=== PATIENT | female | born 1935 | race Two or more races ===

== ENCOUNTER 2016-10-17 05:15 | Inpatient (IN) | payer MEDICARE, MEDICAID ==
[2016-10-17] VITALS (8 sets, daily range): BP systolic 87–147; BP diastolic 44–89
[~2016-10-17] VITALS: Ht 172.7 cm; Wt 72.8 kg
[~2016-10-17 05:15] MED LIST: CLOP75TA41 PO; DIGO0.1262 PO; ERGO1CAP6 PO; FAMO-12 PO; FLUT110A INH; FURO20TA PO; GABA300C8 PO; GLIP-115 PO; LEVO100T8 PO; LORA-154 PO; METO25TA3 PO; MONT10TA23 OR; OMEP20TA44 PO; [UNRECOGNIZED DRUG - OTHER] PO
[2016-10-17 06:25] LABS: Urine RBC None Seen /hpf (0 - 4)
[2016-10-17 06:54] LABS: Basophils # (auto) 0 uL; Basophils % (auto) 0.1 % (0.0-2.0); DEFINITIVE VIEW TRANSMISSION; Eosinophils # (auto) 0.2 uL; Eosinophils % (auto) 1.6 % (0.0-7.0); Hematocrit 44.7 % (36.0-46.0); Hemoglobin 13.7 g/dL (12.2-16.2); Lymphocytes # (auto) 2.6 uL; Lymphocytes % (auto) 27.1 % (10.0-50.0); Mean Corpuscular Hemoglobin 28.9 pg (28.0-32.0); Mean Corpuscular Hgb Conc. 30.6 g/dL (32.0-36.0); Mean Corpuscular Volume 94.4 fL (80.0-100.0); Mean Platelet Volume 8.5 fL (7.4-10.4); Monocytes # (auto) 0.1 uL; Monocytes % (auto) 1.2 % (0.0-12.0); Neutrophils # (auto) 6.8 uL; Platelet Count (auto) 206 10^3/uL (140-450); Red Cell Distribution Width 15.9 % (11.6-16.0); White Blood Cell 9.8 10^3/uL (4.4-10.8)
[2016-10-17 07:12] LABS: Urine Bilirubin Negative (Negative); Urine Blood TRACE /uL (Negative); Urine Color Yellow (Yellow); Urine Glucose Normal (Normal); Urine Ketone Negative (Negative); Urine Nitrite Negative (Negative); Urine Squamous Epithelial Cell FEW /hpf (<5); Urine Urobilinogen Normal (Negative)
[2016-10-17] MEDS ORDERED: PANTOPRAZOLE SODIUM 40 MG/10 ML VIAL IV STA (07:16)
[2016-10-17] MEDS ORDERED: PANT40TA2 PO (07:24)
[2016-10-17] MEDS ORDERED: CARV3.1240 PO (07:25)
[2016-10-17] MEDS ORDERED: PRE5T GT (07:26)
[2016-10-17] MEDS ORDERED: ONDANSETRON HCL 4 MG/2 ML VIAL IV ONE (07:30)
[2016-10-17] MEDS ORDERED: HYDROmorphone HCL 2 MG/ML VL IV ONE (07:30)
[2016-10-17 07:45] LABS: BUN/Creatinine Ratio 17.6; Potassium 3.9 mmol/L (3.5-5.1)
[2016-10-17 07:46] LABS: Albumin 3.3 g/dL (3.4-5.0); Bilirubin, Total 0.5 mg/dL (0.2-1.0); Calcium 7.8 mg/dL (8.5-10.1); Total Protein 8.1 g/dL (6.4-8.2)
[2016-10-17] MEDS ORDERED: ETOMIDATE (2MG/ML) 20ML VIAL IV ONE ×2 (08:30→14:00)
[2016-10-17] MEDS ORDERED: SUCCINYLCHOLINE CHLORIDE 20 MG/ML 10ML VIAL IV ONE ×2 (08:30→13:30)
[2016-10-17] MEDS ORDERED: NOREPINEPHRINE BITARTRATE 250 ML IV ONE (08:44)
[2016-10-17] MEDS: MIDAZOLAM DRIP 100 mg/100mL NS 100 ML IV SCH (08:44)
[2016-10-17] MEDS: NOREPINEPHRINE BITARTRATE 250 ML IV SCH (08:44)
[2016-10-17] MEDS ORDERED: cefTRIAXone 1GM/50ML D5W 50 ML IV ONE (08:45)
[2016-10-17] MEDS ORDERED: MIDAZOLAM DRIP 100 mg/100mL NS 100 ML IV ONE (08:50)
[2016-10-17] MEDS ORDERED: NOREPINEPHRINE BITARTRATE 250 ML IV SCH (09:00)
[2016-10-17 09:16] LABS: Urine Bilirubin Negative (Negative); Urine Blood TRACE /uL (Negative); Urine Color Yellow (Yellow); Urine Glucose Normal (Normal); Urine Ketone Negative (Negative); Urine Nitrite Negative (Negative); Urine RBC 1 /hpf (0 - 4); Urine Squamous Epithelial Cell FEW /hpf (<5); Urine Urobilinogen Normal (Negative)
[2016-10-17] MEDS ORDERED: MIDAZOLAM DRIP 100 mg/100mL NS 100 ML IV SCH (11:00)
[2016-10-17] MEDS ORDERED: LIDOCAINE 4MG/ML IV SOLN 500 ML IV SCH (11:00)
[2016-10-17] MEDS ORDERED: VANCOMYCIN PER PHARMACY 0 MG IV SCH (11:30)
[2016-10-17] MEDS ORDERED: DEXTROSE (50%) 50ML SYRG IV PRN (11:30)
[2016-10-17] MEDS ORDERED: FAMOTIDINE (10MG/ML) 2ML VL IV ONE (11:30)
[2016-10-17] MEDS: PROPOFOL 100 ML IV SCH (11:32)
[2016-10-17] MEDS ORDERED: MORPHINE SULF INJ 2 MG/ML SYRINGE 1ML IV PRN ×2 (11:45)
[2016-10-17] MEDS ORDERED: ONDANSETRON HCL 4 MG/2 ML VIAL IV PRN (11:45)
[2016-10-17] MEDS ORDERED: NITROGLYCERIN 0.4 MG SL TAB SL PRN (11:45)
[2016-10-17] MEDS: cefTRIAXone 1GM/50ML D5W 50 ML IV SCH (12:04)
[2016-10-17] MEDS: SODIUM CHLORIDE 0.9% 1,000 ML IV SCH ×2 (12:04→19:58)
[2016-10-17 12:09] LABS: BUN/Creatinine Ratio 15.2; Calcium 7.7 mg/dL (8.5-10.1); Potassium 4.6 mmol/L (3.5-5.1)
[2016-10-17] MEDS: ACCU-CHEK COMFORT CURVE STRIP VI SCH ×2 (12:16→18:11)
[2016-10-17] MEDS: ENOXAPARIN SOD 30 MG/0.3 ML SYRINGE SC SCH (12:16)
[2016-10-17] MEDS: InsuLIN REG 1unit/0.01ml Soln (100units/ml) SC SCH ×2 (12:17→18:00)
[2016-10-17] MEDS: IPRATROPIUM BROM 0.5 MG/2.5ML INH SOL NEB SCH ×2 (12:24→18:10)
[2016-10-17] MEDS: ALBUTEROL SULF 2.5 MG/0.5ML(0.5%) NEB SOLN NEB SCH ×2 (12:24→18:10)
[2016-10-17] MEDS: VANCOMYCIN 1GM/250ML D5W 250 ML IV SCH (13:00)
[2016-10-17] MEDS ORDERED: FUROSEMIDE 100 MG/10ML VIAL IV ONE (13:45)
[2016-10-17] MEDS ORDERED: FUROSEMIDE 40 MG/4 ML VIAL ONE (13:46)
[2016-10-17 17:01] LABS: Lactic Acid 2.2 mmol/L (0.4-2.0)
[2016-10-17 17:29] LABS: REFLEX LACTIC ACID YES OR NO YES
[2016-10-17 19:05] LABS: Lactic Acid 2.6 mmol/L (0.4-2.0)
[2016-10-17 19:36] LABS: REFLEX LACTIC ACID YES OR NO YES
[2016-10-17] MEDS: HYDROmorphone HCL 2 MG/ML VL IV PRN ×2 (20:05→22:20)
[2016-10-17 20:44] LABS: Lactic Acid 2.2 mmol/L (0.4-2.0)
[2016-10-17 21:12] LABS: REFLEX LACTIC ACID YES OR NO YES
[2016-10-17] MEDS ORDERED: FAMOTIDINE (10MG/ML) 2ML VL IV SCH (22:00)
[2016-10-18] VITALS (12 sets, daily range): BP systolic 93–144; BP diastolic 53–93
[2016-10-18] MEDS: IPRATROPIUM BROM 0.5 MG/2.5ML INH SOL NEB SCH ×4 (00:29→18:24)
[2016-10-18] MEDS: ALBUTEROL SULF 2.5 MG/0.5ML(0.5%) NEB SOLN NEB SCH ×4 (00:29→18:24)
[2016-10-18] MEDS: HYDROmorphone HCL 2 MG/ML VL IV PRN ×3 (01:39→18:28)
[2016-10-18] MEDS: SODIUM CHLORIDE 0.9% 1,000 ML IV SCH (04:18)
[2016-10-18 04:19] LABS: Basophils # (auto) 0.1 uL; Basophils % (auto) 0.5 % (0.0-2.0); Eosinophils # (auto) 0 uL; Eosinophils % (auto) 0.2 % (0.0-7.0); Hematocrit 44.1 % (36.0-46.0); Hemoglobin 13.9 g/dL (12.2-16.2); Lymphocytes # (auto) 2.9 uL; Lymphocytes % (auto) 23.4 % (10.0-50.0); Mean Corpuscular Hemoglobin 29.1 pg (28.0-32.0); Mean Corpuscular Hgb Conc. 31.5 g/dL (32.0-36.0); Mean Corpuscular Volume 92.6 fL (80.0-100.0); Mean Platelet Volume 8.3 fL (7.4-10.4); Monocytes # (auto) 0.5 uL; Monocytes % (auto) 3.8 % (0.0-12.0); Neutrophils # (auto) 8.9 uL; Neutrophils % (auto) 72.1 % (37.0-80.0); Platelet Count (auto) 229 10^3/uL (140-450); White Blood Cell 12.3 10^3/uL (4.4-10.8)
[2016-10-18 04:44] LABS: Albumin 2.9 g/dL (3.4-5.0); BUN/Creatinine Ratio 13.6; Calcium 7.7 mg/dL (8.5-10.1)
[2016-10-18 04:46] LABS: Bilirubin, Total 0.9 mg/dL (0.2-1.0); Total Protein 7.7 g/dL (6.4-8.2)
[2016-10-18] MEDS: InsuLIN REG 1unit/0.01ml Soln (100units/ml) SC SCH ×4 (06:07→18:17)
[2016-10-18] MEDS: ACCU-CHEK COMFORT CURVE STRIP VI SCH ×4 (06:13→18:17)
[2016-10-18] MEDS: ENOXAPARIN SOD 30 MG/0.3 ML SYRINGE SC SCH (09:52)
[2016-10-18] MEDS: cefTRIAXone 1GM/50ML D5W 50 ML IV SCH (09:52)
[2016-10-18] MEDS: FAMOTIDINE (10MG/ML) 2ML VL IV SCH (09:52)
[2016-10-18] MEDS ORDERED: ENOXAPARIN SOD 40 MG/0.4 ML SYRINGE SC SCH (10:00)
[2016-10-18] MEDS: PROPOFOL 100 ML IV SCH (11:32)
[2016-10-18] MEDS ORDERED: SODIUM CHLORIDE 0.9% 1,000 ML IV SCH (11:45)
[2016-10-18 14:11] LABS: B-Type Natriuretic Peptide 106.42 pg/mL (0-100); Temperature: 22.7 C (20.0-25.0)
[2016-10-18] MEDS: VANCOMYCIN 1GM/250ML D5W 250 ML IV SCH (14:26)
[2016-10-18] MEDS: MIDAZOLAM DRIP 100 mg/100mL NS 100 ML IV SCH (14:26)
[2016-10-18] MEDS: PIPERACILLIN-TAZOB 2.25GM 50 ML IV SCH ×2 (14:29→22:17)
[2016-10-18] MEDS: FUROSEMIDE 40 MG/4 ML VIAL IV SCH (18:27)
[2016-10-19] VITALS (13 sets, daily range): BP systolic 69–140; BP diastolic 46–80
[2016-10-19] MEDS: IPRATROPIUM BROM 0.5 MG/2.5ML INH SOL NEB SCH ×4 (00:15→18:45)
[2016-10-19] MEDS: ALBUTEROL SULF 2.5 MG/0.5ML(0.5%) NEB SOLN NEB SCH ×4 (00:15→18:45)
[2016-10-19 03:54] LABS: Basophils # (auto) 0 uL; Basophils % (auto) 0.3 % (0.0-2.0); Eosinophils # (auto) 0.1 uL; Eosinophils % (auto) 0.8 % (0.0-7.0); Hematocrit 43.6 % (36.0-46.0); Hemoglobin 13.9 g/dL (12.2-16.2); Lymphocytes # (auto) 2.7 uL; Lymphocytes % (auto) 22.8 % (10.0-50.0); Mean Corpuscular Hemoglobin 29.2 pg (28.0-32.0); Mean Corpuscular Hgb Conc. 31.9 g/dL (32.0-36.0); Mean Corpuscular Volume 91.4 fL (80.0-100.0); Mean Platelet Volume 8.6 fL (7.4-10.4); Monocytes % (auto) 8.4 % (0.0-12.0); Neutrophils # (auto) 8.1 uL; Neutrophils % (auto) 67.7 % (37.0-80.0); Platelet Count (auto) 204 10^3/uL (140-450); Red Cell Distribution Width 16.5 % (11.6-16.0); White Blood Cell 11.9 10^3/uL (4.4-10.8)
[2016-10-19] MEDS: MIDAZOLAM DRIP 100 mg/100mL NS 100 ML IV SCH ×2 (04:00→14:30)
[2016-10-19 04:06] LABS: INR 1.11 (0.9-1.15); Prothrombin Time 11.4 sec (9.37-12.3)
[2016-10-19 04:12] LABS: Albumin 2.6 g/dL (3.4-5.0); BUN/Creatinine Ratio 10.1; Calcium 7.8 mg/dL (8.5-10.1); Magnesium 1.9 mg/dL (1.6-2.6); Potassium 3.6 mmol/L (3.5-5.1)
[2016-10-19 04:15] LABS: Bilirubin, Total 0.9 mg/dL (0.2-1.0); Total Protein 7.2 g/dL (6.4-8.2)
[2016-10-19] MEDS: InsuLIN REG 1unit/0.01ml Soln (100units/ml) SC SCH ×4 (06:02→17:27)
[2016-10-19] MEDS: ACCU-CHEK COMFORT CURVE STRIP VI SCH ×4 (06:04→17:29)
[2016-10-19] MEDS: PIPERACILLIN-TAZOB 2.25GM 50 ML IV SCH ×3 (06:15→22:38)
[2016-10-19] MEDS: FUROSEMIDE 40 MG/4 ML VIAL IV SCH (06:16)
[2016-10-19 09:03] LABS: B-Type Natriuretic Peptide 52.4 pg/mL (0-100)
[2016-10-19 09:16] LABS: Temperature: 23.5 C (20.0-25.0)
[2016-10-19] MEDS: FAMOTIDINE (10MG/ML) 2ML VL IV SCH (09:44)
[2016-10-19] MEDS: ENOXAPARIN SOD 30 MG/0.3 ML SYRINGE SC SCH (09:44)
[2016-10-19] MEDS ORDERED: AMIODARONE HCL 900 MG in DEXTROSE 500 ML IV SCH (10:27)
[2016-10-19] MEDS ORDERED: AMIODARONE HCL 150 MG in D5W 5% 100 ML IV ONE (10:30)
[2016-10-19] MEDS: SOD CHL 0.45% WITH 20MEQ KCL 1,000 ML IV SCH (10:59)
[2016-10-19] MEDS ORDERED: LINEZOLID 600MG/300ML 300 ML IV ONE (11:15)
[2016-10-19] MEDS: NOREPINEPHRINE BITARTRATE 250 ML IV SCH ×2 (11:45→21:22)
[2016-10-19] MEDS ORDERED: ALBUMIN 25% 100 ML IV ONE (13:30)
[2016-10-19] MEDS: fentaNYL Drip 2500mCg/250mlNS 250 ML IV SCH (14:16)
[2016-10-19] MEDS ORDERED: LIDOCAINE 1% HCL (LOCAL ANESTH.) INJ 20ML MDV ID ONE (15:45)
[2016-10-19] MEDS: AMIODARONE HCL 900 MG in DEXTROSE 500 ML IV SCH (17:00)
[2016-10-19] MEDS ORDERED: LINEZOLID 600MG/300ML 300 ML IV SCH (22:00)
[2016-10-19] MEDS: SODIUM CHLOR 0.9% PF (SALINE LOCK) 10ML VIAL IV SCH (22:16)
[2016-10-19] MEDS: LINEZOLID 600MG/300ML 300 ML IV SCH (22:19)
[2016-10-20] VITALS (13 sets, daily range): BP systolic 97–136; BP diastolic 37–73
[2016-10-20] MEDS: ACCU-CHEK COMFORT CURVE STRIP VI SCH ×4 (00:13→19:00)
[2016-10-20] MEDS: InsuLIN REG 1unit/0.01ml Soln (100units/ml) SC SCH ×4 (00:21→19:00)
[2016-10-20] MEDS: PROPOFOL 100 ML IV SCH ×2 (00:32→11:32)
[2016-10-20] MEDS: IPRATROPIUM BROM 0.5 MG/2.5ML INH SOL NEB SCH ×4 (00:47→19:23)
[2016-10-20] MEDS: ALBUTEROL SULF 2.5 MG/0.5ML(0.5%) NEB SOLN NEB SCH ×4 (00:47→19:23)
[2016-10-20 04:10] LABS: Basophils # (auto) 0 uL; Basophils % (auto) 0.5 % (0.0-2.0); Eosinophils # (auto) 0.3 uL; Eosinophils % (auto) 2.7 % (0.0-7.0); Hematocrit 38.6 % (36.0-46.0); Mean Corpuscular Hemoglobin 28.7 pg (28.0-32.0); Mean Corpuscular Hgb Conc. 31.1 g/dL (32.0-36.0); Mean Corpuscular Volume 92.2 fL (80.0-100.0); Mean Platelet Volume 9.1 fL (7.4-10.4); Monocytes % (auto) 10.4 % (0.0-12.0); Neutrophils # (auto) 6.2 uL; Neutrophils % (auto) 65.4 % (37.0-80.0); Platelet Count (auto) 162 10^3/uL (140-450); Red Cell Distribution Width 15.9 % (11.6-16.0); White Blood Cell 9.4 10^3/uL (4.4-10.8)
[2016-10-20 04:27] LABS: Albumin 2.5 g/dL (3.4-5.0); BUN/Creatinine Ratio 9.8; Calcium 6.9 mg/dL (8.5-10.1); Magnesium 1.7 mg/dL (1.6-2.6); Potassium 4.2 mmol/L (3.5-5.1); Total Protein 6.4 g/dL (6.4-8.2)
[2016-10-20 04:41] LABS: B-Type Natriuretic Peptide 154.4 pg/mL (0-100); Temperature: 22.9 C (20.0-25.0)
[2016-10-20 05:02] LABS: Prothrombin Time 12.2 sec (9.37-12.3)
[2016-10-20 05:05] LABS: INR 1.18 (0.9-1.15)
[2016-10-20] MEDS: PIPERACILLIN-TAZOB 2.25GM 50 ML IV SCH ×3 (06:26→22:00)
[2016-10-20] MEDS: SOD CHL 0.45% WITH 20MEQ KCL 1,000 ML IV SCH (06:46)
[2016-10-20] MEDS: LINEZOLID 600MG/300ML 300 ML IV SCH ×2 (10:00→22:00)
[2016-10-20] MEDS: FAMOTIDINE (10MG/ML) 2ML VL IV SCH (10:00)
[2016-10-20] MEDS ORDERED: FUROSEMIDE 40 MG/4 ML VIAL IV SCH (10:00)
[2016-10-20] MEDS: AMIODARONE HCL 200 MG TAB PO SCH (10:00)
[2016-10-20] MEDS: ENOXAPARIN SOD 30 MG/0.3 ML SYRINGE SC SCH (10:00)
[2016-10-20] MEDS: SODIUM CHLOR 0.9% PF (SALINE LOCK) 10ML VIAL IV SCH ×2 (10:09→22:00)
[2016-10-20] MEDS ORDERED: ALBUMIN 25% 100 ML IV ONE (11:15)
[2016-10-20] MEDS: NOREPINEPHRINE BITARTRATE 250 ML IV SCH ×2 (11:56→20:18)
[2016-10-20] MEDS: fentaNYL Drip 2500mCg/250mlNS 250 ML IV SCH (13:30)
[2016-10-20] MEDS: AMIODARONE HCL 900 MG in DEXTROSE 500 ML IV SCH (16:27)
[2016-10-21] VITALS (74 sets, daily range): BP systolic 78–143; BP diastolic 28–96
[2016-10-21] MEDS: ACCU-CHEK COMFORT CURVE STRIP VI SCH ×4 (00:16→18:18)
[2016-10-21] MEDS: IPRATROPIUM BROM 0.5 MG/2.5ML INH SOL NEB SCH ×4 (01:01→18:28)
[2016-10-21] MEDS: ALBUTEROL SULF 2.5 MG/0.5ML(0.5%) NEB SOLN NEB SCH ×4 (01:01→18:28)
[2016-10-21] MEDS: SOD CHL 0.45% WITH 20MEQ KCL 1,000 ML IV SCH ×2 (02:30→22:30)
[2016-10-21] MEDS ORDERED: DIGO0.1262 PO (03:18)
[2016-10-21] MEDS ORDERED: CARV3.1240 PO (03:18)
[2016-10-21] MEDS ORDERED: FURO40TA PO (03:18)
[2016-10-21] MEDS ORDERED: PANT1INJ3 IV (03:18)
[2016-10-21 04:17] LABS: Calcium 7.2 mg/dL (8.5-10.1); Potassium 4.1 mmol/L (3.5-5.1)
[2016-10-21 04:21] LABS: BUN/Creatinine Ratio 8.9; Magnesium 1.6 mg/dL (1.6-2.6)
[2016-10-21 04:52] LABS: B-Type Natriuretic Peptide 49.8 pg/mL (0-100); Temperature: 20.8 C (20.0-25.0)
[2016-10-21] MEDS: InsuLIN REG 1unit/0.01ml Soln (100units/ml) SC SCH ×4 (05:56→18:23)
[2016-10-21] MEDS: PIPERACILLIN-TAZOB 2.25GM 50 ML IV SCH ×3 (05:58→22:00)
[2016-10-21] MEDS: fentaNYL Drip 2500mCg/250mlNS 250 ML IV SCH (07:30)
[2016-10-21] MEDS: SODIUM CHLOR 0.9% PF (SALINE LOCK) 10ML VIAL IV SCH ×2 (11:20→22:00)
[2016-10-21] MEDS: LINEZOLID 600MG/300ML 300 ML IV SCH ×2 (11:20→22:00)
[2016-10-21] MEDS: FAMOTIDINE (10MG/ML) 2ML VL IV SCH (11:20)
[2016-10-21] MEDS: AMIODARONE HCL 200 MG TAB PO SCH (11:20)
[2016-10-21] MEDS: ENOXAPARIN SOD 30 MG/0.3 ML SYRINGE SC SCH (11:20)
[2016-10-21] MEDS: MIDAZOLAM DRIP 100 mg/100mL NS 100 ML IV SCH ×2 (11:32→11:36)
[2016-10-21] MEDS: PROPOFOL 100 ML IV SCH (11:32)
[2016-10-22] VITALS (86 sets, daily range): BP systolic 82–147; BP diastolic 30–80
[2016-10-22] MEDS: ACCU-CHEK COMFORT CURVE STRIP VI SCH ×4 (00:30→18:00)
[2016-10-22] MEDS: InsuLIN REG 1unit/0.01ml Soln (100units/ml) SC SCH ×4 (00:30→18:00)
[2016-10-22] MEDS: IPRATROPIUM BROM 0.5 MG/2.5ML INH SOL NEB SCH ×4 (00:37→18:48)
[2016-10-22] MEDS: ALBUTEROL SULF 2.5 MG/0.5ML(0.5%) NEB SOLN NEB SCH ×4 (00:37→18:48)
[2016-10-22 04:19] LABS: Basophils # (auto) 0 uL; Basophils % (auto) 0.5 % (0.0-2.0); Eosinophils # (auto) 0.4 uL; Eosinophils % (auto) 4.4 % (0.0-7.0); Hematocrit 33.6 % (36.0-46.0); Hemoglobin 10.7 g/dL (12.2-16.2); Lymphocytes # (auto) 1.2 uL; Lymphocytes % (auto) 14.5 % (10.0-50.0); Mean Corpuscular Hemoglobin 29.1 pg (28.0-32.0); Mean Corpuscular Hgb Conc. 31.8 g/dL (32.0-36.0); Mean Corpuscular Volume 91.6 fL (80.0-100.0); Mean Platelet Volume 9.5 fL (7.4-10.4); Monocytes # (auto) 0.7 uL; Monocytes % (auto) 9.3 % (0.0-12.0); Neutrophils # (auto) 5.7 uL; Neutrophils % (auto) 71.3 % (37.0-80.0); Platelet Count (auto) 125 10^3/uL (140-450); Red Cell Distribution Width 16.2 % (11.6-16.0)
[2016-10-22 04:35] LABS: BUN/Creatinine Ratio 8.2; Calcium 6.2 mg/dL (8.5-10.1)
[2016-10-22 04:51] LABS: Potassium 5.9 mmol/L (3.5-5.1)
[2016-10-22] MEDS: PIPERACILLIN-TAZOB 2.25GM 50 ML IV SCH ×3 (05:22→22:23)
[2016-10-22] MEDS: SODIUM CHLOR 0.9% PF (SALINE LOCK) 10ML VIAL IV SCH ×2 (10:03→22:23)
[2016-10-22] MEDS: LINEZOLID 600MG/300ML 300 ML IV SCH ×2 (10:03→22:23)
[2016-10-22] MEDS: FAMOTIDINE (10MG/ML) 2ML VL IV SCH (10:03)
[2016-10-22] MEDS: ENOXAPARIN SOD 30 MG/0.3 ML SYRINGE SC SCH (10:04)
[2016-10-22] MEDS: AMIODARONE HCL 200 MG TAB PO SCH (10:05)
[2016-10-22] MEDS: NOREPINEPHRINE BITARTRATE 250 ML IV SCH (11:49)
[2016-10-22] MEDS: fentaNYL Drip 2500mCg/250mlNS 250 ML IV SCH (13:06)
[2016-10-22] MEDS ORDERED: Suplena 8 ounce GT SCH (14:45)
[2016-10-22] MEDS: SOD CHL 0.45% WITH 20MEQ KCL 1,000 ML IV SCH (18:40)
[2016-10-23] VITALS (72 sets, daily range): BP systolic 89–140; BP diastolic 40–75
[2016-10-23] MEDS: ACCU-CHEK COMFORT CURVE STRIP VI SCH ×5 (00:01→23:42)
[2016-10-23] MEDS: InsuLIN REG 1unit/0.01ml Soln (100units/ml) SC SCH ×5 (00:04→23:44)
[2016-10-23] MEDS: IPRATROPIUM BROM 0.5 MG/2.5ML INH SOL NEB SCH ×4 (00:17→18:14)
[2016-10-23] MEDS: ALBUTEROL SULF 2.5 MG/0.5ML(0.5%) NEB SOLN NEB SCH ×4 (00:17→18:14)
[2016-10-23 04:26] LABS: Basophils # (auto) 0 uL; Basophils % (auto) 0.3 % (0.0-2.0); Eosinophils # (auto) 0.3 uL; Eosinophils % (auto) 4.3 % (0.0-7.0); Hematocrit 36.5 % (36.0-46.0); Hemoglobin 11.5 g/dL (12.2-16.2); Lymphocytes % (auto) 12.5 % (10.0-50.0); Mean Corpuscular Hgb Conc. 31.5 g/dL (32.0-36.0); Mean Corpuscular Volume 92.2 fL (80.0-100.0); Monocytes # (auto) 0.7 uL; Monocytes % (auto) 9.6 % (0.0-12.0); Neutrophils # (auto) 5.6 uL; Neutrophils % (auto) 73.3 % (37.0-80.0); Platelet Count (auto) 160 10^3/uL (140-450); Red Cell Distribution Width 16.3 % (11.6-16.0); White Blood Cell 7.7 10^3/uL (4.4-10.8)
[2016-10-23 04:34] LABS: Calcium 7.2 mg/dL (8.5-10.1); Potassium 4.1 mmol/L (3.5-5.1)
[2016-10-23 04:36] LABS: BUN/Creatinine Ratio 8.4
[2016-10-23] MEDS: PIPERACILLIN-TAZOB 2.25GM 50 ML IV SCH ×3 (05:47→21:38)
[2016-10-23] MEDS: FAMOTIDINE (10MG/ML) 2ML VL IV SCH (10:11)
[2016-10-23] MEDS: ENOXAPARIN SOD 30 MG/0.3 ML SYRINGE SC SCH (10:12)
[2016-10-23] MEDS: LINEZOLID 600MG/300ML 300 ML IV SCH (10:12)
[2016-10-23] MEDS: SODIUM CHLOR 0.9% PF (SALINE LOCK) 10ML VIAL IV SCH ×2 (10:12→21:37)
[2016-10-23] MEDS: AMIODARONE HCL 200 MG TAB PO SCH (10:12)
[2016-10-23] MEDS: NOREPINEPHRINE BITARTRATE 250 ML IV SCH (10:16)
[2016-10-23] MEDS: fentaNYL Drip 2500mCg/250mlNS 250 ML IV SCH (13:06)
[2016-10-23] MEDS ORDERED: MONTELUKAST SODIUM 10 MG TAB PO ONE (14:15)
[2016-10-23] MEDS ORDERED: methylPREDNISolone SOD SUCC 40 MG/ML VL IV ONE (14:15)
[2016-10-23] MEDS: SOD CHL 0.45% WITH 20MEQ KCL 1,000 ML IV SCH (14:19)
[2016-10-23] MEDS: methylPREDNISolone SOD SUCC 125 MG/2 ML VL IV SCH (21:38)
[2016-10-24] VITALS (57 sets, daily range): BP systolic 84–148; BP diastolic 36–86
[2016-10-24 00:11] LABS: Potassium 4.8 mmol/L (3.5-5.1)
[2016-10-24 00:14] LABS: Magnesium 1.8 mg/dL (1.6-2.6)
[2016-10-24] MEDS: ALBUTEROL SULF 2.5 MG/0.5ML(0.5%) NEB SOLN NEB SCH ×4 (00:24→18:59)
[2016-10-24] MEDS: IPRATROPIUM BROM 0.5 MG/2.5ML INH SOL NEB SCH ×4 (00:24→18:59)
[2016-10-24 04:10] LABS: BUN/Creatinine Ratio 8.9; Calcium 7.6 mg/dL (8.5-10.1); Potassium 4.8 mmol/L (3.5-5.1)
[2016-10-24 04:14] LABS: Basophils # (auto) 0 uL; Eosinophils # (auto) 0 uL; Hematocrit 33.7 % (36.0-46.0); Hemoglobin 10.6 g/dL (12.2-16.2); Lymphocytes # (auto) 0.3 uL; Lymphocytes % (auto) 5.3 % (10.0-50.0); Mean Corpuscular Hemoglobin 28.9 pg (28.0-32.0); Mean Corpuscular Hgb Conc. 31.6 g/dL (32.0-36.0); Mean Corpuscular Volume 91.3 fL (80.0-100.0); Mean Platelet Volume 8.8 fL (7.4-10.4); Monocytes # (auto) 0 uL; Monocytes % (auto) 0.4 % (0.0-12.0); Neutrophils # (auto) 5.4 uL; Neutrophils % (auto) 94.3 % (37.0-80.0); Platelet Count (auto) 187 10^3/uL (140-450); Red Cell Distribution Width 16.2 % (11.6-16.0); White Blood Cell 5.7 10^3/uL (4.4-10.8)
[2016-10-24] MEDS: PIPERACILLIN-TAZOB 2.25GM 50 ML IV SCH ×3 (05:24→22:00)
[2016-10-24] MEDS: ACCU-CHEK COMFORT CURVE STRIP VI SCH ×3 (05:24→16:54)
[2016-10-24] MEDS: methylPREDNISolone SOD SUCC 125 MG/2 ML VL IV SCH ×3 (05:24→21:55)
[2016-10-24] MEDS: InsuLIN REG 1unit/0.01ml Soln (100units/ml) SC SCH ×3 (05:26→18:54)
[2016-10-24] MEDS: AMIODARONE HCL 200 MG TAB PO SCH (09:57)
[2016-10-24] MEDS: FAMOTIDINE (10MG/ML) 2ML VL IV SCH (09:57)
[2016-10-24] MEDS: SODIUM CHLOR 0.9% PF (SALINE LOCK) 10ML VIAL IV SCH ×2 (09:57→21:54)
[2016-10-24] MEDS: MONTELUKAST SODIUM 10 MG TAB PO SCH (09:57)
[2016-10-24] MEDS: ENOXAPARIN SOD 30 MG/0.3 ML SYRINGE SC SCH (09:57)
[2016-10-24] MEDS: NOREPINEPHRINE BITARTRATE 250 ML IV SCH (09:58)
[2016-10-24] MEDS: SOD CHL 0.45% WITH 20MEQ KCL 1,000 ML IV SCH (09:58)
[2016-10-24] MEDS: SODIUM CHLORIDE 0.9% 1,000 ML IV SCH (14:05)
[2016-10-25] VITALS (7 sets, daily range): BP systolic 94–128; BP diastolic 48–74
[2016-10-25] MEDS: InsuLIN REG 1unit/0.01ml Soln (100units/ml) SC SCH ×4 (00:38→17:58)
[2016-10-25] MEDS: ACCU-CHEK COMFORT CURVE STRIP VI SCH ×4 (00:39→17:47)
[2016-10-25] MEDS: ALBUTEROL SULF 2.5 MG/0.5ML(0.5%) NEB SOLN NEB SCH ×4 (01:06→19:20)
[2016-10-25] MEDS: IPRATROPIUM BROM 0.5 MG/2.5ML INH SOL NEB SCH ×4 (01:06→19:20)
[2016-10-25] MEDS: methylPREDNISolone SOD SUCC 125 MG/2 ML VL IV SCH (06:06)
[2016-10-25] MEDS: PIPERACILLIN-TAZOB 2.25GM 50 ML IV SCH ×2 (06:06→14:57)
[2016-10-25 06:30] LABS: Basophils # (auto) 0 uL; Eosinophils # (auto) 0 uL; Hematocrit 32.5 % (36.0-46.0); Hemoglobin 10.4 g/dL (12.2-16.2); Lymphocytes # (auto) 0.4 uL; Lymphocytes % (auto) 7.5 % (10.0-50.0); Mean Corpuscular Hemoglobin 29.3 pg (28.0-32.0); Mean Corpuscular Hgb Conc. 31.9 g/dL (32.0-36.0); Mean Corpuscular Volume 91.8 fL (80.0-100.0); Mean Platelet Volume 8.6 fL (7.4-10.4); Monocytes # (auto) 0.1 uL; Monocytes % (auto) 1.8 % (0.0-12.0); Neutrophils # (auto) 5.1 uL; Neutrophils % (auto) 90.7 % (37.0-80.0); Platelet Count (auto) 188 10^3/uL (140-450); Red Cell Distribution Width 16.5 % (11.6-16.0); White Blood Cell 5.6 10^3/uL (4.4-10.8)
[2016-10-25 06:55] LABS: Magnesium 2.1 mg/dL (1.6-2.6); Potassium 4.5 mmol/L (3.5-5.1)
[2016-10-25 06:56] LABS: BUN/Creatinine Ratio 11.4
[2016-10-25] MEDS: ENOXAPARIN SOD 30 MG/0.3 ML SYRINGE SC SCH (10:44)
[2016-10-25] MEDS: FAMOTIDINE (10MG/ML) 2ML VL IV SCH (10:44)
[2016-10-25] MEDS: SODIUM CHLOR 0.9% PF (SALINE LOCK) 10ML VIAL IV SCH ×2 (10:45→22:04)
[2016-10-25] MEDS: AMIODARONE HCL 200 MG TAB PO SCH (10:45)
[2016-10-25] MEDS: MONTELUKAST SODIUM 10 MG TAB PO SCH (10:45)
[2016-10-25] MEDS: SODIUM CHLORIDE 0.9% 1,000 ML IV SCH (10:46)
[2016-10-25] MEDS ORDERED: CLOPIDOGREL BISULFATE 75 MG TAB PO ONE (15:00)
[2016-10-25] MEDS ORDERED: CARVEDILOL 3.125 MG TAB PO ONE (15:00)
[2016-10-25] MEDS ORDERED: LEVOTHYROXINE SODIUM 100 MCG TAB PO ONE (15:00)
[2016-10-25] MEDS ORDERED: METOPROLOL SUCCINATE XL 50 MG TAB PO ONE (15:00)
[2016-10-25] MEDS ORDERED: methylPREDNISolone SOD SUCC 40 MG/ML VL IV ONE (15:00)
[2016-10-25] MEDS ORDERED: CARVEDILOL 3.125 MG TAB PO SCH (22:00)
[2016-10-25] MEDS ORDERED: methylPREDNISolone SOD SUCC 125 MG/2 ML VL IV SCH (22:00)
[2016-10-25] MEDS: methylPREDNISolone SOD SUCC 40 MG/ML VL IV SCH (22:04)
[2016-10-25] MEDS: CARVEDILOL 3.125 MG TAB PO SCH (22:04)
[2016-10-26] MEDS: ALBUTEROL SULF 2.5 MG/0.5ML(0.5%) NEB SOLN NEB SCH ×3 (00:11→11:33)
[2016-10-26] MEDS: IPRATROPIUM BROM 0.5 MG/2.5ML INH SOL NEB SCH ×3 (00:11→11:33)
[2016-10-26] MEDS: ACCU-CHEK COMFORT CURVE STRIP VI SCH ×3 (00:45→12:48)
[2016-10-26] MEDS: InsuLIN REG 1unit/0.01ml Soln (100units/ml) SC SCH ×3 (00:45→12:16)
[2016-10-26 05:40] LABS: Hematocrit 33.2 % (36.0-46.0); Hemoglobin 10.6 g/dL (12.2-16.2)
[2016-10-26 06:20] LABS: BUN/Creatinine Ratio 15.2; Calcium 7.7 mg/dL (8.5-10.1); Potassium 4.4 mmol/L (3.5-5.1)
[2016-10-26] MEDS ORDERED: LEVOTHYROXINE SODIUM 100 MCG TAB PO SCH (07:00)
[2016-10-26] MEDS ORDERED: cefTRIAXone 1GM/50ML D5W 50 ML IV SCH (09:00)
[2016-10-26] MEDS ORDERED: PANTOPRAZOLE 40 MG TAB PO SCH (10:00)
[2016-10-26] MEDS ORDERED: METOPROLOL SUCCINATE XL 50 MG TAB PO SCH (10:00)
[2016-10-26] MEDS: CARVEDILOL 3.125 MG TAB PO SCH (10:00)
[2016-10-26] MEDS ORDERED: CLOPIDOGREL BISULFATE 75 MG TAB PO SCH (10:00)
[2016-10-26] MEDS: ENOXAPARIN SOD 30 MG/0.3 ML SYRINGE SC SCH (10:35)
[2016-10-26] MEDS: methylPREDNISolone SOD SUCC 40 MG/ML VL IV SCH (10:35)
[2016-10-26] MEDS: MONTELUKAST SODIUM 10 MG TAB PO SCH (10:36)
[2016-10-26] MEDS: AMIODARONE HCL 200 MG TAB PO SCH (10:39)
[2016-10-26] MEDS ORDERED: GLIP-115 PO (12:33)
[2016-10-26] MEDS ORDERED: PANT40TA2 PO (12:33)
[2016-10-26] MEDS ORDERED: CARV3.1240 PO (12:33)
[2016-10-26] MEDS ORDERED: FURO40TA PO (12:33)
[2016-10-26] MEDS ORDERED: LEVO100T8 PO (12:33)
[2016-10-26] MEDS ORDERED: DOXY-216 PO (12:33)
[2016-10-26] MEDS ORDERED: CLOP75TA41 PO (12:33)
[2016-10-26] MEDS ORDERED: AMI200T PO (12:33)
[2016-10-26] MEDS: SODIUM CHLOR 0.9% PF (SALINE LOCK) 10ML VIAL IV SCH (12:40)
[2016-10-26] MEDS ORDERED: glipiZIDE 5 MG TAB PO ONE (12:45)
[2016-10-26] MEDS: SODIUM CHLORIDE 0.9% 1,000 ML IV SCH (12:49)
[2016-10-26 14:07] VITALS: BP 110/57
[2016-10-26] MEDS ORDERED: glipiZIDE 5 MG TAB PO SCH (18:00)
[2016-10-26] MEDS ORDERED: DOXYCYCLINE 100 MG TAB PO SCH (22:00)
== END 2016-10-26 16:06 | DRG 870 ==
LOC: EDBD 05:15 → ER 05:17 → TELE 05:18 → ICU WEST 10-20 19:10 → DOU IN ICU 10-24 20:30 → TELE-WESTW 10-25 18:20
PROVIDERS: ADMIT Internal Medicine; ATTEND Internal Medicine
PROC: 02HV33Z Insertion of Infusion Device into Superior Vena Cava, Percutaneous Approach (ICD-10-PCS; principal; 2016-10-17)
PROC: 5A09357 Assistance with Respiratory Ventilation, Less than 24 Consecutive Hours, Continuous Positive Airway Pressure (ICD-10-PCS; 2016-10-17)
PROC: 0BH17EZ Insertion of Endotracheal Airway into Trachea, Via Natural or Artificial Opening (ICD-10-PCS; 2016-10-18)
PROC: 5A1955Z Respiratory Ventilation, Greater than 96 Consecutive Hours (ICD-10-PCS; 2016-10-18)
DX: A41.9 Sepsis, unspecified organism (principal); J69.0 Pneumonitis due to inhalation of food and vomit; R65.21 Severe sepsis with septic shock; K85.90 Acute pancreatitis without necrosis or infection, unspecified; I50.43 Acute on chronic combined systolic (congestive) and diastolic (congestive) heart failure; G93.41 Metabolic encephalopathy; I21.4 Non-ST elevation (NSTEMI) myocardial infarction; J96.21 Acute and chronic respiratory failure with hypoxia; J96.22 Acute and chronic respiratory failure with hypercapnia; N17.0 Acute kidney failure with tubular necrosis; G93.1 Anoxic brain damage, not elsewhere classified; I13.0 Hypertensive heart and chronic kidney disease with heart failure and stage 1 through stage 4 chronic kidney disease, or unspecified chronic kidney disease; D68.59 Other primary thrombophilia; E44.1 Mild protein-calorie malnutrition; I48.1 Persistent atrial fibrillation; I42.9 Cardiomyopathy, unspecified; I48.92 Unspecified atrial flutter; J44.1 Chronic obstructive pulmonary disease with (acute) exacerbation; N28.0 Ischemia and infarction of kidney; J44.0 Chronic obstructive pulmonary disease with (acute) lower respiratory infection; N18.4 Chronic kidney disease, stage 4 (severe); I48.2 Chronic atrial fibrillation; Z86.73 Personal history of transient ischemic attack (TIA), and cerebral infarction without residual deficits; D63.1 Anemia in chronic kidney disease; E03.9 Hypothyroidism, unspecified; E05.90 Thyrotoxicosis, unspecified without thyrotoxic crisis or storm; E11.21 Type 2 diabetes mellitus with diabetic nephropathy; E11.22 Type 2 diabetes mellitus with diabetic chronic kidney disease; E66.9 Obesity, unspecified; E87.5 Hyperkalemia; E78.5 Hyperlipidemia, unspecified; E86.0 Dehydration; E87.8 Other disorders of electrolyte and fluid balance, not elsewhere classified; I25.10 Atherosclerotic heart disease of native coronary artery without angina pectoris; I35.1 Nonrheumatic aortic (valve) insufficiency; M19.90 Unspecified osteoarthritis, unspecified site; Z82.49 Family history of ischemic heart disease and other diseases of the circulatory system; Z87.891 Personal history of nicotine dependence; Z95.0 Presence of cardiac pacemaker; Z83.3 Family history of diabetes mellitus; F32.9 Major depressive disorder, single episode, unspecified; Z79.899 Other long term (current) drug therapy; Z88.6 Allergy status to analgesic agent
CPT/HCPCS: 31500; 36415; 36600; 70450; 71010; 74176; 80048; 80053; 80061; 80162; 81001; 82150; 82306; 82570; 82805; 82962; 83036; 83605; 83615; 83690; 83735; 83880; 83970; 84100; 84132; 84156; 84300; 84484; 85014; 85018; 85025; 85610; 87040; 87070; 87081; 87086; 87205; 92610; 93005; 93306; 94002; 94003; 94640; 94660; 96361; 96365; 96366; 96368; 96372; 96375; 96376; 97001; C9113; J0330; J0696; J1815; J2405; J2543; J3010; J3490; J7060